=== PATIENT | female | born 1995 | race Two or more races ===

== ENCOUNTER 2017-02-08 12:07 | Emergency (ER) | payer OTHER ==
[2017-02-08] MEDS ORDERED: ALBUTEROL SULFATE 0.083% NEB 2.5 MG/3 ML AMPUL NEB ONE (12:56)
[2017-02-08] MEDS ORDERED: IPRATROPIUM/ALBUTEROL 0.5-2.5 MG/3 ML AMPUL NEB ONE (12:56)
[2017-02-08] MEDS ORDERED: PREDNISONE 20 MG TABLET PO ONE (12:57)
--- NOTE | 2017-02-08 14:01 | RADIOLOGY REPORT (SQ) ---
EXAM DESCRIPTION: CHEST PA/LAT COMPLETED DATE/TIME: 02/08/2017 1:51 pm REASON FOR STUDY: sob cough COMPARISON: None. EXAM PARAMETERS: NUMBER OF VIEWS: two views TECHNIQUE: Digital Frontal and Lateral radiographic views of the chest acquired. RADIATION DOSE: NA LIMITATIONS: none FINDINGS: LUNGS AND PLEURA: No opacities, masses or pneumothorax. No pleural effusion. MEDIASTINUM AND HILAR STRUCTURES: No masses or contour abnormalities. HEART AND VASCULAR STRUCTURES: Heart normal size. No evidence for failure. BONES: No acute findings. HARDWARE: None in the chest. OTHER: No other significant finding. IMPRESSION: NO SIGNIFICANT RADIOGRAPHIC FINDING IN THE CHEST. TECHNICAL DOCUMENTATION: JOB ID: [id number] [employer]- All Rights Reserved
[2017-02-08] MEDS ORDERED: ALBUTEROL SULFATE HFA (90 MCG/PUFF) 8 GM MDI (1 MDI/ER DISP) IH ONE (14:11)
--- NOTE | 2017-02-08 14:21 | ER Document Report ---
ED General - General Chief Complaint: Cough Stated Complaint: COUGH,WHEEZING,CONGESTION Time Seen by Provider: 02/08/17 12:48 TRAVEL OUTSIDE OF THE [place] IN LAST 30 DAYS: No - HPI Patient complains to provider of: Productive cough or wheezing fevers Notes: Patient returns to the ER today for productive cough wheezing and fevers. States night sweats by prior to arrival. Patient denies any smoking denies any sick contacts. Patient currently traveled from [place] to the [place] area to be near her family. Upon my evaluation patient is in no obvious distress patient denies any past medical history denies any current medications. - Related Data Allergies/Adverse Reactions: No Known Allergies Allergy (Unverified 02/08/17 12:15) Past Medical History - Social History Smoking Status: Unknown if Ever Smoked Family History: Reviewed & Not Pertinent Review of Systems - Review of Systems Constitutional: No symptoms reported EENT: No symptoms reported Cardiovascular: No symptoms reported Respiratory: Cough, Short of breath, Wheezing Gastrointestinal: No symptoms reported Genitourinary: No symptoms reported Female Genitourinary: No symptoms reported Musculoskeletal: No symptoms reported Skin: No symptoms reported Hematologic/Lymphatic: No symptoms reported Neurological/Psychological: No symptoms reported -: Yes All other systems reviewed and negative Physical Exam - Vital signs Vitals: Temp Pulse Resp BP Pulse Ox 98.6 F 81 20 136/85 H 98 02/08/17 12:14 02/08/17 12:14 02/08/17 12:14 02/08/17 12:14 02/08/17 12:14 Interpretation: Normal - General General appearance: Appears well, Alert - HEENT Head: Normocephalic, Atraumatic Eyes: Normal Pupils: PERRL - Respiratory Respiratory status: No respiratory distress Chest status: Nontender Breath sounds: Wheezing Chest palpation: Normal - Cardiovascular Rhythm: Regular Heart sounds: Normal auscultation Murmur: No - Abdominal Inspection: Normal Distension: No distension Bowel sounds: Normal Tenderness: Nontender Organomegaly: No organomegaly - Back Back: Normal, Nontender - Extremities General upper extremity: Normal inspection, Nontender, Normal color, Normal ROM , Normal temperature General lower extremity: Normal inspection, Nontender, Normal color, Normal ROM , Normal temperature, Normal weight bearing. No: Isac's sign - Neurological Neuro grossly intact: Yes Cognition: Normal Orientation: AAOx4 [place] Coma Scale Eye Opening: Spontaneous [place] Coma Scale Verbal: Oriented [place] Coma Scale Motor: Obeys Commands [place] Coma Scale Total: 15 Speech: Normal Motor strength normal: LUE, RUE, LLE, RLE Sensory: Normal - Psychological Associated symptoms: Normal affect, Normal mood - Skin Skin Temperature: Warm Skin Moisture: Dry Skin Color: Normal Course - Re-evaluation Re-evalutation: 02/08/17 14:08 Chest x-ray is negative for any signs of pneumonia. Examinations consistent with reactive airway disease or bronchitis. We will treat the patient with cough medication steroids and bronchodilators. Patient will be discharged home. - Vital Signs Vital signs: Temp Pulse Resp BP Pulse Ox 98.6 F 81 20 136/85 H 98 02/08/17 12:14 02/08/17 12:14 02/08/17 12:14 02/08/17 12:14 02/08/17 12:14 Discharge - Discharge Clinical Impression: Bronchitis Condition: Good Disposition: HOME, SELF-CARE Instructions: Bronchitis With Bronchospasm (Wheezing) (OM) Additional Instructions: Your evaluation today shows signs of bronchitis. Chest x-ray is negative for any signs of pneumonia. We will treat her symptoms with bronchodilators and steroids. Please continue to drink plenty of water to stay hydrated. He may also take the tablets for cough suppression return to ER if symptoms worsen. Please use the inhaler that we gave you here in ER 2 puffs every 4 hours for the next 5 days then as needed for shortness of breath. Prescriptions: Codeine Phosphate/Guaifenesin [Guaifen-Codeine 100-10 mg/5 ml] 5 ml PO Q6 #120 liquid Prednisone [Deltasone 20 mg Tablet] 60 mg PO DAILY 5 Days tablet
[2017-02-08 14:31] VITALS: BP 134/75
== END 2017-02-08 14:20 | disposition home or self-care (01) ==
LOC: ER 12:07
DX: J40 Bronchitis, not specified as acute or chronic (principal); R05 Cough; R06.2 Wheezing; R09.81 Nasal congestion
CPT/HCPCS: 94640 ×2; 99283; 81025; 71020; J7512; J3490; J7620